=== PATIENT | male | born 1985 | race Caucasian/White ===

== ENCOUNTER 2019-01-05 01:43 | Inpatient (IN) | payer SELFPAY ==
[2019-01-05 02:05] VITALS: BMI 30.3
[2019-01-05] MEDS ORDERED: Promethazine HCl 25 MG/ML VIAL IM PRN (02:18)
[2019-01-05] MEDS ORDERED: Milk Of Magnesia 30 ML UDCUP PO PRN (02:18)
[2019-01-05] MEDS ORDERED: Acetaminophen 325 MG TAB PO PRN (02:18)
[2019-01-05] MEDS ORDERED: Morphine 4 MG/ML VIAL SLOW IVP PRN ×2 (02:18→22:36)
[2019-01-05] MEDS ORDERED: Bisacodyl 10 MG SUPP PR PRN (02:18)
[2019-01-05] MEDS ORDERED: Ondansetron PF 4 MG/2 ML Vial IVP PRN (02:18)
[2019-01-05] MEDS ORDERED: Communication Order-Pharmacy FS SCH (02:30)
[2019-01-05 06:20] LABS: #Basophils 0.1 thou/uL (0.0-0.2); #Eosinphils 0.1 thou/uL (0.0-0.7); #Lymphocytes 2.6 thou/uL (1.20-3.40); #Monocytes 0.9 thou/uL (0.11-0.59); #Neutrophils 5.4 thou/uL (1.40-6.50); %Basophils 0.7 % (0.0-1.0); %Eosinophils 1.3 % (0.0-10.0); %Lymphocytes 28.7 % (21.0-51.0); %Monocytes 9.4 % (0.0-10.0); Hemoglobin 14.2 g/dL (14.0-18.0); Mean Corpuscular Volume 91.6 fL (78.0-98.0); Mean Platelet Volume 8.2 fL (7.4-10.4); PTT 25.9 SEC (22.9-36.1); Platelet Count 217 thou/uL (130-400); Prothrombin Time 13.4 SEC (12.0-14.7); RBC Distribution Width 12.2 % (11.5-14.5); Red Blood Cell (RBC) Count 4.42 mill/uL (4.70-6.10)
[2019-01-05 06:37] LABS: ALT (SGPT) 37 U/L (8-55); AST (SGOT) 22 U/L (5-34); Alkaline Phosphatase 65 U/L (40-110); Anion Gap 9 mmol/L (10-20); BUN (Urea Nitrogen) 16 mg/dL (8.9-20.6); Bilirubin, Total 0.6 mg/dL (0.2-1.2); Calc. Creatinine Clearance 121 mL/min (70-130); Calcium 9.2 mg/dL (7.8-10.44); Carbon Dioxide 27 mmol/L (22-29); Chloride 103 mmol/L (98-107); Estimated GFR-MDRD 74; Globulin 3.5 g/dL (2.4-3.5); Glucose 114 mg/dL (70-105); Potassium 3.4 mmol/L (3.5-5.1); Protein, Total 7.5 g/dL (6.0-8.3); Sodium 136 mmol/L (136-145)
[2019-01-05] MEDS: Sodium Chloride 0.9% 1,000 ML IV SCH ×3 (06:37→22:32)
[2019-01-05] MEDS: Ketorolac Tromethamine 30 MG/ML VIAL IVP SCH ×4 (06:38→22:32)
[2019-01-05 07:39] LABS: Bacteria/HPF None Seen HPF (None Seen); Bilirubin Negative (Negative); Blood, Urine Negative (Negative); Clarity Clear (Clear); Glucose, Urine (Dipstick) Normal (Negative); Leukocyte Negative Leu/uL (Negative); Nitrite Negative (Negative); Protein, Urine (Dipstick) Negative (Neg-Trace); RBC/HPF 0-3 HPF (0-3); Squamous Epithelial None Seen HPF (0-3); Urobilinogen Normal mg/dL (Less than 2); WBC/HPF 0-3 HPF (0-3)
[2019-01-05] MEDS: Aspirin 81 mg Enteric Coated Tablet PO SCH ×2 (08:43→21:20)
[2019-01-05] MEDS ORDERED: TETANUS AND DIPHTHERIA TOX/PF 0.5 ML DISP.SYRIN IM SCH (09:00)
--- NOTE | 2019-01-05 09:43 | RAD ---
LEFT HAND THREE VIEWS: HISTORY: Abscess. Fracture. COMPARISON: Film done earlier on 01/04/2019. FINDINGS: Transverse angulated fracture of the distal fifth metacarpal again noted. Soft tissue swelling surrou nding the fifth metacarpal again noted. No other osseous abnormality. No change from the exam of 01/04/2019. POS: OFF
[2019-01-05] MEDS ORDERED: Sodium Chloride 0.9% 30 ML ONE (18:57)
[2019-01-05] MEDS ORDERED: Bacitracin Zinc Ointment 30 gm TUBE ONE (18:57)
[2019-01-05] MEDS ORDERED: Bupivacaine PF 0.5% 30 ML VIAL ONE (18:57)
[2019-01-05] MEDS ORDERED: Ketorolac Tromethamine 30 MG/ML VIAL ONE (19:10)
[2019-01-05] MEDS ORDERED: Fentanyl 100 MCG/2 ML VIAL ONE (19:23)
[2019-01-05] MEDS ORDERED: HYDROmorphone 2 MG/ML VIAL ONE (20:23)
[2019-01-05] MEDS ORDERED: Promethazine 25 MG TAB PO PRN (22:39)
--- NOTE | 2019-01-05 23:09 | RAD ---
Radiograph left hand 2 views: DATE: 01/05/2019 Time: 8:42 PM HISTORY: 33-year-old male undergoing abscess drainage from hand. COMPARISON: 01/05/2019 at 7:05 AM FINDINGS: Small [id number] fluoroscopic spot images obtained with C-arm in the OR centered at the MCP joints , especially the fifth MCP. Again noted is the boxers fracture at the head of the fifth metacarpal. There is ill-defined large region of increased attenuation in the soft tissues projecting just to the ulnar side of the fifth metacarpal perhaps representing overlying dressings. IMPRESSION: Boxer's fracture of fifth metacarpal head.
[2019-01-06] MEDS: Vancomycin HCl 1 GM in Premix Bag 1 BAG IVPB SCH ×3 (00:42→16:11)
[2019-01-06] MEDS: Sodium Chloride 0.9% 1,000 ML IV SCH ×2 (00:42→17:21)
[2019-01-06] MEDS: HYDROcodone/Acetaminophen 7.5/325 mg Tablet PO PRN ×3 (00:46→13:14)
[2019-01-06] MEDS ORDERED: Ketorolac Tromethamine 30 MG/ML VIAL IVP SCH (02:00)
[2019-01-06 02:01] LABS: #Basophils 0.1 thou/uL (0.0-0.2); #Eosinphils 0.1 thou/uL (0.0-0.7); #Lymphocytes 2.4 thou/uL (1.20-3.40); #Monocytes 0.4 thou/uL (0.11-0.59); #Neutrophils 6.2 thou/uL (1.40-6.50); %Basophils 0.5 % (0.0-1.0); %Eosinophils 1.1 % (0.0-10.0); %Lymphocytes 26.5 % (21.0-51.0); %Monocytes 4.7 % (0.0-10.0); %Neutrophils 67.3 % (42.0-75.0); Mean Corpuscular HGB CONC 34.7 g/dL (32.0-36.0); Mean Corpuscular Hemoglobin 32.5 pg (27.0-31.0); Mean Corpuscular Volume 93.6 fL (78.0-98.0); Mean Platelet Volume 8.1 fL (7.4-10.4); Platelet Count 217 thou/uL (130-400); RBC Distribution Width 12.2 % (11.5-14.5); White Blood Cell (WBC) Count 9.2 thou/uL (4.8-10.8)
[2019-01-06 06:22] LABS: #Basophils 0.1 thou/uL (0.0-0.2); #Eosinphils 0.1 thou/uL (0.0-0.7); #Lymphocytes 2.5 thou/uL (1.20-3.40); #Monocytes 0.7 thou/uL (0.11-0.59); %Basophils 0.7 % (0.0-1.0); %Eosinophils 1.5 % (0.0-10.0); %Lymphocytes 30.2 % (21.0-51.0); %Monocytes 8.2 % (0.0-10.0); %Neutrophils 59.3 % (42.0-75.0); Hemoglobin 13.3 g/dL (14.0-18.0); Mean Corpuscular HGB CONC 34.1 g/dL (32.0-36.0); Mean Corpuscular Hemoglobin 31.8 pg (27.0-31.0); Mean Corpuscular Volume 93.5 fL (78.0-98.0); Mean Platelet Volume 7.9 fL (7.4-10.4); Platelet Count 217 thou/uL (130-400); RBC Distribution Width 12.3 % (11.5-14.5); Red Blood Cell (RBC) Count 4.18 mill/uL (4.70-6.10); White Blood Cell (WBC) Count 8.4 thou/uL (4.8-10.8)
[2019-01-06] MEDS: Aspirin 81 mg Enteric Coated Tablet PO SCH ×2 (10:06→21:31)
--- NOTE | 2019-01-06 11:22 | OP ---
DATE OF PROCEDURE: 01/05/2019 PREOPERATIVE DIAGNOSIS: Left small finger abscess, 2 cm finding thick, lópez-green pus, subcutaneous, but not violating the fascia, involving the fat and not tracing down to his fracture, small finger. PROCEDURES PERFORMED: 1. Closed treatment of small finger metacarpal fracture. 2. Incision and drainage of abscess cavity dressed open with irrigation 3 L normal saline and Pulsavac pressure. TOURNIQUET TIME: 8 minutes. ANESTHESIA: [place] Anesthesia with general LMA technique augmented by 20 mL 0.5% Marcaine block given in a field technique prior to incision. DESCRIPTION OF PROCEDURE: After successful the limb prepped and draped. The patient had the time-out done appropriately. We then outlined a 3 cm zigzag incision almost midlateral over the junction of the dorsal and palmar skin of the 5th metacarpal. This was at its midportion. We then carried incision through skin, immediately gross mucopurulent lópez green thick malodorous pus escaped. We evacuated this. We then saw where they had made a cavity and we then resected the cavity using a combination of tenotomy scissors and atraumatic Crile. We then resected the grayish greenish portion of the subcutaneous skin, which was at the point of the zig-zag on both sides and sent this along with the abscess cavity as specimen. The mucopurulence was also sent as a separate specimen. We inspected and found no communication with the fracture, we irrigated the abscess site with the cavity gone, subcutaneous skin removed that was clearly erythematous, infected, and then we finished the irrigation. Once this was done, we used blunt dissection to get down to the fracture, but there was no gross purulence or connection. We then finished the irrigation, released the tourniquet, obtained hemostasis. We packed with normal saline soaked 4x4s under 4 x 4's that were not soaked, under a Kerlix and then placed in splint with the MP joints at about approximately 56 degrees and the wrist at 35 degrees dorsiflexion. Radiographs confirmed that the fracture was still straight and had less angulation in frontal sagittal plane than preop. Job ID: [id number]
[2019-01-06] MEDS: traMADol HCl 50 MG TAB PO PRN ×2 (11:42→16:08)
[2019-01-07] MEDS: Vancomycin HCl 1 GM in Premix Bag 1 BAG IVPB SCH ×2 (00:34→07:42)
[2019-01-07] MEDS: HYDROcodone/Acetaminophen 7.5/325 mg Tablet PO PRN ×2 (00:38→07:45)
[2019-01-07] MEDS: traMADol HCl 50 MG TAB PO PRN ×2 (03:55→12:57)
[2019-01-07] MEDS: Sodium Chloride 0.9% 1,000 ML IV SCH (06:15)
[2019-01-07] MEDS: Aspirin 81 mg Enteric Coated Tablet PO SCH (09:26)
[2019-01-07 11:56] VITALS: BP 117/79; TEMP 97.7
== END 2019-01-07 16:17 | disposition home or self-care (01) | DRG 581 ==
LOC: 3SE 01:43
PROVIDERS: ADMIT Orthopaedic Surgery Hand Surgery; ATTEND Orthopaedic Surgery Hand Surgery
PROC: 0J9K0ZZ Drainage of Left Hand Subcutaneous Tissue and Fascia, Open Approach (ICD-10-PCS; principal; 2019-01-05)
DX: L02.512 Cutaneous abscess of left hand (principal); Z88.8 Allergy status to other drugs, medicaments and biological substances; Z79.899 Other long term (current) drug therapy
CPT/HCPCS: 36415; 76000; 80053; 80202; 81001; 85025; 85610; 85730; 87070; 87077; 87186; 87205; J1170; J1885; J2270; J3010; J3370; J3490; S0020

== ENCOUNTER 2019-01-17 14:05 | Day surgery (SDC) | payer OTHER, SELFPAY ==
[2019-01-14 13:00] VITALS: BMI 31.0
[~2019-01-17 14:05] MED LIST: Dexamethasone 20 MG/5 ML VIAL ONE; Lidocaine 1% PF 5 ML VIAL ONE; Ondansetron PF 4 MG/2 ML Vial ONE; PROPOFOL 200 MG/20 ML VIAL ONE
[2019-01-17 15:17] LABS: Hemoglobin 14.5 g/dL (14.0-18.0); Mean Corpuscular HGB CONC 35.1 g/dL (32.0-36.0); Mean Corpuscular Hemoglobin 32.1 pg (27.0-31.0); Mean Corpuscular Volume 91.5 fL (78.0-98.0); Mean Platelet Volume 8.3 fL (7.4-10.4); Platelet Count 231 thou/uL (130-400); White Blood Cell (WBC) Count 4.7 thou/uL (4.8-10.8)
[2019-01-17 15:30] LABS: Eosinophils 1 % (0-10); Lymphocytes 55 % (21-51); MDiff Complete? YES; Monocytes 4 % (0-10); Neutrophil 40 % (42-75); Platelet Morphology Comment Appears Adequate
[2019-01-17] MEDS ORDERED: Fentanyl 100 MCG/2 ML VIAL ONE ×2 (17:56→19:50)
[2019-01-17] MEDS ORDERED: Sodium Chloride 0.9% 10 ML ONE (19:44)
[2019-01-17] MEDS ORDERED: Bupivacaine PF 0.5% 30 ML VIAL ONE (19:44)
[2019-01-17] MEDS ORDERED: Bacitracin Zinc Ointment 30 gm TUBE ONE (19:44)
[2019-01-17] MEDS ORDERED: Midazolam HCl 2 mg/2 ml Vial ONE (19:50)
--- NOTE | 2019-01-17 21:27 | RAD ---
INTRAOPERATIVE FLUOROSCOPIC IMAGING LEFT HAND: Clinical history: Left hand drainage FINDINGS: Intraprocedural magnified fluoroscopic imaging of the left hand is performed. There is osseous irregu larity of the distal aspect of the fifth metacarpal with associated fracture lucency and periosteal reaction. Detail is limited. Correlate with intraoperative findings. Impression: Intraoperative fluoroscopic imaging. Transcribed Date/Time: 01/17/2019 9:47 PM
[2019-01-17] MEDS ORDERED: Ketorolac Tromethamine 30 MG/ML VIAL ONE (21:54)
--- NOTE | 2019-01-18 11:22 | OP ---
DATE OF PROCEDURE: 01/17/2019 PREOPERATIVE DIAGNOSES: 1. Left hand 5-cm wound. 2. Left small finger metacarpal fracture. PROCEDURES PERFORMED: 1. Closed treatment of left small finger metacarpal fracture. 2. Debridement of wound. 3. Closure of 5-cm wound in multiple layers. 4. C-arm supervision. TOURNIQUET TIME: 5 minute. ESTIMATED BLOOD LOSS: 10 mL. FINDING: Gross infection, metacarpal fracture stable in adequate position without instability on the fluoro. DESCRIPTION OF PROCEDURE: After successful anesthesia, the limb was prepped and draped. We gave 10 mL of 0.5% metacarpophalangeal joint block level to exsanguinate the limb and inflated the tourniquet to 250 mmHg pressure. We then evaluated the fracture wound and fracture. We also saw on the C-arm, it was stable, did not move and with adequate positions, we did not perform fixation. I finished debridement of wound using following techniques, 1. Excision technique. 2. Tenotomy scissors, curette, and [place] blade. 3. Went down and occluded the fascia. 4. There was no gross infection. We then closed the wound in 2 layers with 3-0 Monocryl subcutaneous and 4-0 nylon for the interrupted epidermal layer. Applied a bulky dressing and an ulnar gutter splint. The patient left the operating room without complications. Job ID: [id number]
--- NOTE | 2019-01-27 15:06 | PQF ---
[facility] POST DISCHARGE CLINICAL DOCUMENTATION IMPROVEMENT CLARIFICATION FORM l Todays Date: 01/27/19 l Patients Name DEBBY SNYDER l l Admit Date 01/17/19 l Disch Date 01/17/19 Recovery Collector Name Debi Watson Email: [email or web address] Cell: [phone] To be completed by Recovery Collector: Present Clinical Indicators - Signs / Symptoms Results and Location in Medical Record [ ] Documentation of: [ ] [ ] Documentation of: [ ] [ ] Documentation of: [ ] [ ] Documentation of: [ ] [ ] Risks [ ] [ ] [ ] Treatment [ ] Closed treatment of left small finger metacarpal fracture debdridement of wound. Need to verify area size of debridement. [ ] [ ] To be completed by Physician: DAVID HOROWITZ MD The documentation in this patients record requires clarification to ensure coding compliance and accuracy. Check the appropriate box and include in your discharge summary. [ ] [ ] [ ] [ ] Please check this box if this does not apply to this patient [ ] Unable to determine [ ] Other diagnosis: Review the following information and exercise your independent professional judgment in responding to the clarification. Based upon the clinical findings, risk factors, and treatment, please clarify if you are treating one of the above probable or suspected diagnoses. Physician Signature: Date Time MTDD
== END 2019-01-17 22:47 | disposition home or self-care (01) ==
LOC: EEVIPCON 14:05 → SDC 14:05
PROVIDERS: ATTEND Orthopaedic Surgery Hand Surgery
DX: S62.367A Nondisplaced fracture of neck of fifth metacarpal bone, left hand, initial encounter for closed fracture (principal); L02.512 Cutaneous abscess of left hand; A49.02 Methicillin resistant Staphylococcus aureus infection, unspecified site; Z88.5 Allergy status to narcotic agent; Z88.6 Allergy status to analgesic agent
CPT/HCPCS: 36415; 76000; 85025; J1100; J1885; J2001; J2250; J2405; J2704; J3010; J3370; J3490; S0020